=== PATIENT | female | born 1955 | race American Indian/Alaskan Native ===

== ENCOUNTER 2018-02-02 08:28 | Day surgery (SDC) | payer OTHER ==
[2018-01-15 13:59] VITALS: BMI 28.0
--- NOTE | 2018-01-31 05:48 | HP ---
REASON FOR ADMISSION: Left heart cath, possible angioplasty, abnormal stress test. BRIEF CLINICAL HISTORY: This is a 62-year-old female with past medical history significant for palpitation, hypertension, diverticular colonic disease, mild AR, mild TR, moderate mitral regurgitation, complaining of chest pain and pressure. Patient is scheduled for stress test suggestive of ischemia, anterior defect. Patient is scheduled for elective cardiac cath, possible angioplasty. PAST MEDICAL HISTORY: Significant for mild COPD, mild hypertension, hyperlipidemia. SOCIAL HISTORY: Denies any smoking. Denies any history of alcohol abuse. CURRENT MEDICATIONS: Patient is taking MiraLax, omeprazole, diazepam, aspirin, and Ventolin inhaler. RECENT CARDIAC WORKUP: As follows, patient has a stress test dated 01/15/2018 that revealed abnormal myocardiac perfusion study, mild anterior defect suggestive of ischemia, normal gated wall motion. Patient walked on the treadmill for 6 minutes and 17 seconds of Donnell protocol, stopped due to fatigue, archived 95% of predicted heart rate. No significant ST-T changes noted. Ventricular scan was positive. Patient had echocardiography done that showed mild AR, mild tricuspid regurgitation, moderate mitral regurgitation. ALLERGIES: NO KNOWN DRUG ALLERGIES. REVIEW OF SYSTEMS: As per HPI. PHYSICAL EXAMINATION: VITAL SIGNS: Height of the patient 5 feet 3 inches, weight of the patient 158 pounds, body mass index 28 kg per sq m. Temperature afebrile, heart rate 68, blood pressure 130/80. HEENT: PERRLA. Extraocular muscles intact. NECK: Supple. No carotid bruit or thyromegaly. CHEST: Clear to auscultation. HEART: S1 and S2 regular. ABDOMEN: Soft. EXTREMITIES: Clubbing and cyanosis, negative. LABORATORY DATA: Blood workup pending. IMPRESSION: Abnormal stress test suspicious of ischemia, chest pain, mild mitral regurgitation, mild tricuspid regurgitation, moderate mitral regurgitation, mild aortic insufficiency. RECOMMENDATIONS: Cardiac catheterization. Further recommendations after cardiac catheterization. We will load with aspirin and Plavix. Risks, benefits and alternatives discussed with the patient. Patient agrees. We will proceed for cardiac catheterization. Further recommendations after cardiac catheterization. We will follow with you. Thank you, Dr. Ortega, for providing us the opportunity in taking care of patient, Althea Fuentes. Raghavendra Renteria MD [facility] # [id number]
[2018-02-02 09:08] LABS: BASO # 0.03 K/mm3 (0.0-2.0); BASO % 0.4 % (0.0-3.0); EOS # 0.2 (0.0-0.7); GRAN # 3.84 (1.4-6.5); GRAN % 50.2 % (50.0-68.0); HEMOGLOBIN 14.5 g/dL (12.0-16.0); LYMPH % 39.5 % (22.0-35.0); MEAN CELL VOLUME 88.2 fl (80.0-105.0); MEAN CORPUSCULAR HEMOGLOBIN 29.5 pg (25.0-35.0); MEAN CORPUSCULAR HGB CONC 33.5 g/dl (31.0-37.0); MEAN PLATELET VOLUME 10.5 fl (7.0-11.0); MONO # 0.6 (0.1-0.6); MONO % 7.9 % (1.0-6.0); RBC 4.91 10^6/uL (3.5-6.1); RED CELL DISTRIBUTION WIDTH 12.4 % (11.5-14.5); WHITE BLOOD COUNT 7.6 10^3/ul (4.5-11.0)
[2018-02-02 09:12] LABS: INR 1.01; PROTHROMBIN TIME 11.6 SECONDS (9.4-12.5)
[2018-02-02 09:15] LABS: BLOOD UREA NITROGEN 13 mg/dL (7-21); CALCIUM 10.1 mg/dL (8.4-10.5); GFR NON-AFRICAN AMERICAN > 60; HDL CHOLESTEROL 52 mg/dL (29-60)
[2018-02-02 09:23] VITALS: RESP 18
[2018-02-02 09:25] LABS: LDL CHOLESTEROL 71 mg/dL (0-129)
--- NOTE | 2018-02-02 10:19 | CARD ---
APPROVED REPORT Date of service: 02/02/2018 EKG Measurement Heart [id number] <Conclusion> Sinus bradycardia with sinus arrhythmia Minimal voltage criteria for LVH, may be normal variant
[2018-02-02] MEDS ORDERED: Phenylephrine 10 mg/ml Inj ONE (11:19)
[2018-02-02] MEDS ORDERED: Verapamil 2 ML ONE (11:19)
[2018-02-02] MEDS ORDERED: Nitroglycerin 50mg in D5W 50 MG/250 ML BOTTLE IV ONE (11:19)
[2018-02-02] MEDS ORDERED: Lidocaine 2% PF (10 ml) Amp ONE (11:46)
[2018-02-02] MEDS ORDERED: Midazolam 2 MG/2 ML VIAL ONE (12:10)
[2018-02-02] MEDS ORDERED: Bacitracin 500 Units/gm Oint Foilpak UD TOP ONE (12:38)
[2018-02-02] MEDS ORDERED: Sodium Chloride 0.9% 1,000 ML IV SCH (12:45)
--- NOTE | 2018-02-02 12:53 | CPOSTOP ---
DATE: 02/02/2018 CARDIOVASCULAR LAB POST PROCEDURE NOTE DICTATING PHYSICIAN: Raghavendra Renteria MD. [employer] LAP TENDER: rehab technician. TYPE OF ANESTHESIA: Moderate conscious sedation. Total 2 mg of Versed, 100 of fentanyl given. PRE-PROCEDURE DIAGNOSES: Unstable angina, abnormal stress test, chest pain. PROCEDURE PERFORMED: Left heart catheterization. FINDINGS: Normal coronaries. Preserved LV function. FINAL DIAGNOSIS: Normal coronaries. POST PROCEDURE CONDITION: Post procedure, the patient's condition is stable. VASCULAR ACCESS SITE: Left radial. CLOSURE DEVICE: TR Band. TOTAL RADIATION DOSE: 2826.96 milligray unit. TOTAL FLUORO TIME: 2 minutes. Raghavendra Renteria MD
[2018-02-02 13:16] VITALS: TEMP 98.2
[2018-02-02] MEDS ORDERED: Bacitracin 500 Units/gm Oint Foilpak UD ONE (15:11)
[2018-02-02 15:15] VITALS: BP 129/57; PULSE 59; O2SAT 96
--- NOTE | 2018-02-02 18:29 | CARD ---
APPROVED REPORT Date of service: 02/02/2018 Procedure(s) performed: Left Heart Catheterization HISTORY The patient is a 62 year-old female with a history of : most recent EF: 69%. (EF Method: RADIONUCLIDE), chronic lung disease, hypertension , dyslipidemia , c/o chest pain and abnormal Stress test suggestive of anterior Ischemia. CASE TECHNIQUE The patient was brought electively to the Cardiac Catheterization Laboratory in a fasting state and was prepped and draped in a sterile manner. The left wrist was infiltrated with 2% Lidocaine subcutaneous anesthesia. A 6FR GLIDESPark MediaTH ACCESS KIT sheath was inserted into the left radial artery without difficulty. Coronary angiography was performed using coronary diagnostic catheters. The left coronary system was accessed and visualized with a Diagnostic,5 Fr JL 4 catheter. The right coronary system was accessed and visualized with a Diagnostic ,5 Fr JR 4 catheter. The left ventricle was accessed and visualized with a 5 Fr Pigtail 145 (Angled) catheter. Left ventricular/Aortic Valve gradient assessed on pullback. Left ventriculogram was performed in CALLAHAN projection. Closure device was deployed with a Fr TR Band (Regular) without any complications. The patient tolerated the procedure well and there were no complications associated with the procedure. Vessel Analysis The patient's coronary anatomy is right dominant. The left main coronary artery is a medium size vessel . The left main bifurcates to the left anterior descending and circumflex. The left anterior descending artery is a medium size vessel without significant stenosis. The first diagonal branch is a medium size vessel without significant stenosis. The circumflex artery is a medium size vessel with intimal irregularities and without significant stenosis. The first obtuse marginal branch is a medium size vessel without significant stenosis. The second obtuse marginal branch is a medium size vessel with intimal irregularities and without significant stenosis. The third obtuse marginal branch is a medium size vessel with intimal irregularities and without significant stenosis. The right coronary artery is a small size vessel without significant stenosis. The right posterior descending artery is a medium size vessel without significant stenosis. The right posterolateral branch is a medium size vessel without significant stenosis. Left Ventricle The left ventricle is normal in size with normal contractility. There was no cardiomyopathy. The left ventricular ejection fraction is estimated to be 55-60%. The left ventricular end diastolic pressure is 15 mmHg. There was no gradient across the aortic valve upon pullback. Conclusion Normal coronaries Preserved LV Fx. Ef-55-60%, EDP-15 mmof hg. Recommendations Aggressive Medical TherapyCardiac Risk Reduction Program Cc: DRS. Mary Carrillo / Pallavi
== END 2018-02-02 16:00 | disposition home or self-care (01) ==
LOC: CATH 08:28
PROVIDERS: ATTEND Internal Medicine Cardiovascular Disease
DX: R07.9 Chest pain, unspecified (principal); I08.3 Combined rheumatic disorders of mitral, aortic and tricuspid valves; I10 Essential (primary) hypertension; E78.5 Hyperlipidemia, unspecified; R94.39 Abnormal result of other cardiovascular function study
CPT/HCPCS: 36415; 80048; 80061; 85025; 85610; 86850; 86900; 93005; 93458; 99152; C1769; C1887 ×2; J1644 ×2; J2250; J3010; J7030; J7040; Q9967

== ENCOUNTER → 2018-08-13 | Day surgery (SDC) | payer OTHER | LOC: CATH 08:26 | DX: R00.2 Palpitations (principal) ==